=== PATIENT | male | born 1945 | race Caucasian/White ===

== ENCOUNTER 2019-09-20 17:44 | Day surgery (SDC) | payer MEDICARE, MEDICAID ==
[2019-09-12 17:00] LABS: BASOPHILS % (AUTO) 0.3 % (0-1); EOSINOPHILS % (AUTO) 0 % (0-6); LYMPHOCYTES # (AUTO) 1.1 X10'3 (1.1-4.8); LYMPHOCYTES % (AUTO) 19.5 % (21-51); MEAN CORPUSCULAR HEMOGLOBIN 29.3 PG (27.0-31.0); MEAN CORPUSCULAR HGB CONC 33.4 g/dL (33.0-36.5); MEAN CORPUSCULAR VOLUME 87.5 FL (78-98); MEAN PLATELET VOLUME 7.6 FL (7.4-10.4); MONOCYTES % (AUTO) 17.5 % (2-12); NEUTROPHILS # (AUTO) 3.7 X10'3 (1.8-7.7); NEUTROPHILS % (AUTO) 62.7 % (42-75); PRE OP HEMATOCRIT 39.3 % (42.0-52.0); PRE OP HEMOGLOBIN 13.1 g/dL (14.0-17.9); PRE OP PLATELET COUNT 191 X10'3 (140-440); RED BLOOD COUNT 4.49 X10'6 (4.70-6.10); RED CELL DISTRIBUTION WIDTH 13.2 % (11.5-14.5)
[2019-09-12 17:06] LABS: PRE OP PROTIME 10.1 SECONDS (9.0-12.0)
[2019-09-12 17:09] LABS: ALBUMIN/GLOBULIN RATIO 0.8 (1.1-1.5); ALKALINE PHOSPHATASE 88 IU/L (46-116); BLOOD UREA NITROGEN 16 MG/DL (7-18); BUN/CREATININE RATIO 19.3 (5.4-32.0); CALCIUM 9.4 MG/DL (8.5-10.1); CHLORIDE 110 MMOL/L (99-107); CREATININE 0.83 MG/DL (0.60-1.10); PRE OP ALT 20 U/L (30-65); PRE OP ANION GAP 6 (8-16); PRE OP AST 13 U/L (10-37); PRE OP BILIRUB, TOTAL 0.3 MG/DL (0.0-1.0); PRE OP GLUCOSE 157 MG/DL (70-104); PRE OP SODIUM 146 MMOL/L (135-145); eGFR > 90 ML/MIN
[2019-09-12 17:31] LABS: TOTAL CELLS COUNTED 100
[2019-09-12 17:32] LABS: PLATELET ESTIMATE NORMAL
[2019-09-13 10:21] LABS: HEMOGLOBIN A1C 5.9 % (4.5-6.2)
[~2019-09-20] VITALS: Ht 182.9 cm; Wt 78.0 kg
[2019-09-20] VITALS (19 sets, daily range): BP systolic 128–160; BP diastolic 62–87
--- NOTE | 2019-09-20 17:41 | NUR ---
Received from OR via BED, accompanied by Anesthesiologist DR CORTEZ and report given by Anesthesiologist. PT DROWSY, DENIES PAIN, STATES LEGS FEEL NUMB BUT HE IS ABLE TO FEEL TOUCH AND MOVE BILAT LE'S, 3 WAY LEVI CATHETER ATTACHED TO CONTINUOUS IRRIAGATION W/FRANSICO URINE IN COLLECTION BAG/TUBING. Addendum: 09/20/19 at 1827 by Monse Bowers RN Amended: Links added.
[~2019-09-20 17:44] MED LIST: AMLO5TAB16 PO; FLO0.4C PO; HYDROcodone/acetaminophen 10/325mg tab PO PRN; LIDOcaine 2% (20mg/ml) 5ml vial ONE; MIDAZolam 1mg/ml 10ml vial ONE; acetaminophen 325mg tablet PO PRN; cefazolin/dext.iso 2gm/50ml 50 ML IV ONE; famotidine 20mg tablet PO ONE; fentaNYL/PF 50MCG/1 ML 2ML syringe IV PRN; fentaNYL/PF 50MCG/1 ML 2ML syringe ONE; hydrALAZINE 20mg/ml inj. IV PRN; labetalol 20mg/4ml (5mg/ml) syringe IV PRN; mag hydrox/Alum hydrox/simeth 30ml oral suspension PO PRN; morphine 4 MG/ML inj SYRINge IV PRN; ondansetron/PF 4mg/2ml inj IV PRN; opium/belladonna alkaloids No. 15A 30mg rectal suppository RC PRN; oxybutynin 5mg tablet PO PRN; proCHLORperazine 10 MG/2 ml inj IV PRN; propofol inj 20 ML IV ONE; ringers solution, lacted 1,000 ML IV SCH; zolpidem 5mg tablet PO PRN
[2019-09-20] MEDS ORDERED: HYDROcodone/acetaminophen 10/325mg tab PO PRN (18:00)
--- NOTE | 2019-09-20 19:11 | NUR ---
Report called to receiving nurse. Transferred via BED, 1 BAG OF PT Belongings SENT W/PT TO ROOM 349A, NURSES AID AT BEDSIDE ATTACHED PT TO VS, BLL, CALL LIGHT GIVEN, SIDE RAILS UP X2, FAMILY PRESENT, RECEIVING RN NOTIFIED OF PTS ARRIVAL. Special Issues communicated to receiving nurse. YES. TOTAL LEVI IRRIGATION IN WAS 900 MLS AND 1270 OUT FOR A TOTAL OF 370 ML URINE. Addendum: 09/20/19 at 1927 by Monse Bowers RN Amended: Links added.
[2019-09-20] MEDS: docusate sod 100mg capsule PO SCH (20:54)
[2019-09-20] MEDS: potassium cl 20mEq in 1/2 NS 1,000 ML IV SCH (20:55)
[2019-09-21] VITALS: BP 138/70
[2019-09-21] MEDS: potassium cl 20mEq in 1/2 NS 1,000 ML IV SCH ×2 (01:37→04:45)
[2019-09-21 05:01] LABS: ALBUMIN 2.4 G/DL (3.4-5.0); ANION GAP 4 (8-16); BASOPHILS % (AUTO) 0.3 % (0-1); BLOOD UREA NITROGEN 21 MG/DL (7-18); BUN/CREATININE RATIO 28.4 (5.4-32.0); CALCIUM 8.7 MG/DL (8.5-10.1); CHLORIDE 109 MMOL/L (99-107); CREATININE 0.74 MG/DL (0.60-1.10); EOSINOPHILS % (AUTO) 0.1 % (0-6); GLUCOSE 99 MG/DL (70-104); HEMATOCRIT 34.9 % (42.0-52.0); LYMPHOCYTES # (AUTO) 1.6 X10'3 (1.1-4.8); MEAN CORPUSCULAR HEMOGLOBIN 29.8 PG (27.0-31.0); MEAN CORPUSCULAR HGB CONC 34.5 g/dL (33.0-36.5); MEAN CORPUSCULAR VOLUME 86.5 FL (78-98); MEAN PLATELET VOLUME 7.7 FL (7.4-10.4); MONOCYTES # (AUTO) 1.2 X10'3 (0-0.9); MONOCYTES % (AUTO) 15.4 % (2-12); NEUTROPHILS # (AUTO) 4.8 X10'3 (1.8-7.7); NEUTROPHILS % (AUTO) 63.2 % (42-75); PLATELET COUNT 153 X10'3 (140-440); POTASSIUM 4.3 MMOL/L (3.5-5.1); RED BLOOD COUNT 4.03 X10'6 (4.70-6.10); RED CELL DISTRIBUTION WIDTH 13.3 % (11.5-14.5); SODIUM 141 MMOL/L (135-145); TOTAL CARBON DIOXIDE 27.9 MMOL/L (24-32); WHITE BLOOD COUNT 7.6 X10'3 (4.5-11.0); eGFR > 90 ML/MIN
--- NOTE | 2019-09-21 06:34 | NUR ---
Problems reprioritized. Patient report given, questions answered & plan of care reviewed with ARIS Culp. Addendum: 09/21/19 at 0635 by Barbara Lacey RN Amended: Links added.
--- NOTE | 2019-09-21 06:50 | NUR ---
Patient in room [facility] 349. I have received report from Michelle Arias RN and had the opportunity to ask questions and assume patient care.
[2019-09-21 07:00] VITALS: BP 167/76
[2019-09-21] MEDS: docusate sod 100mg capsule PO SCH (07:20)
[2019-09-21] MEDS ORDERED: pantoprazole 40mg Tablet.DR PO SCH (07:30)
[2019-09-21] MEDS ORDERED: tamsulosin 0.4mg capsule PO SCH (08:00)
[2019-09-21] MEDS ORDERED: amLODIPine 5mg tablet PO SCH (08:00)
[2019-09-21] MEDS ORDERED: DOCU-148 PO (08:28)
--- NOTE | 2019-09-21 10:05 | NUR ---
Discharged patient home, discharge instructions given to patient. Patient verbalized understanding of all instructions made. Peripheral IV catheter removed, tip intact. Foy catheter care discussed with patient. Hooked patient's foy catheter hooked to a leg bag. Night time bag sent with the patient. Instructed patient to ensure he has all his belongings. Patient ambulated from room to hallway 2 laps without difficulty. Patient refused to be wheeled out to the [facility], he has steady gait. Patient insisted he will just walk to the [facility] and wait for his sister at the [facility].
== END 2019-09-21 10:08 | disposition home or self-care (01) ==
LOC: PAS 17:44 → SUR 3N 19:05 → PAS IN 19:05 → UNDODISIN 09-21 10:07 → PAS 09-21 10:08
PROVIDERS: ATTEND Urology
DX: N40.1 Benign prostatic hyperplasia with lower urinary tract symptoms (principal); N13.8 Other obstructive and reflux uropathy; I10 Essential (primary) hypertension; G47.30 Sleep apnea, unspecified; Z87.891 Personal history of nicotine dependence; Z79.899 Other long term (current) drug therapy; Z85.46 Personal history of malignant neoplasm of prostate; Z72.89 Other problems related to lifestyle; Z79.82 Long term (current) use of aspirin
CPT/HCPCS: 36415; 80048; 80053; 82948; 83036; 85025; 85610; 85730; 86885; 86900; 86901; 87081; 88305; 93005; A4346; A4355; A4615; G0378; J2001; J2250; J2704; J3010; J3480; J7120